=== PATIENT | female | born 1945 | race Caucasian/White ===

== ENCOUNTER → 2016-10-08 | Outpatient (CLI) | payer MEDICARE, OTHER ==
[~2016-10-08] MED LIST: ALPRAZOLAM0.5 MG PO; ASPIRIN EC325 MG PO; DOXYCYCLINE HY100 M3 PO; ESCITALOPRAM 2020 MG PO; INVOKANA100 MG PO; JANUMET XR1 TER PO; LASIX20 MG PO; LEVOTHYROXINE0.05 MG NG; LIPITOR80 MG PO; LISINOPRIL 20MG20 MG PO; METFORMIN1000 MG PO; NIASPAN500 MG PO; NORCO 325 MG-51 TAB PO; OMEPRAZOLE40 MG PO; PREDNISONE 20MG20 MG PO; PROMETHAZI PO; VITAMIN C500 M1 PO; VITAMIN D31000 IU PO
--- NOTE | 2016-10-09 07:15 | RADIOLOGY REPORT PS360 ---
MRI-L-SPINE W/O, MRI-3D RENDERING/MYELOGRAM Ordering Physician: Maximo Whitaker Age: 70 years: Female HISTORY: SCIATICA, UNSPECIFIED LATERALLY Low back pain left leg pain 1 month TECHNIQUE: Sagittal STIR, T1, T2, axial T1 and T2. On 1.5T Siemens wide bore MRI. 3-D MR myelogram image set obtained & performed on MRI workstation. Additional sagittal thin section T2 weighted dataset obtained from this latter acquisition as well (---76 CPT) FINDINGS No previous studies available for comparison Lumbar vertebral bodies overall intact with no compression fractures or significant lesions. L5/S1. Mild diffuse disc bulge most evident towards left foramen. Bilateral facet hypertrophy arthropathy. The moderate foraminal encroachment left> right L4/5: Exuberant facet arthropathy, posterior element hypertrophy give rise to the ~5 mm degenerative anterolisthesis of L4 on L5. Prominent disc bulge associated. These features severe spinal stenosis .. Trefoil configurationspinal canal due to the facet hypertrophy. Prominent recess and foraminal encroachment, bilateral. Levoscoliosis lower L-spine from L2-L4. At the Disc space narrowing to the right at L2/ 3 &/L3/4 levels contributes to the levoscoliosis:. L. 3/4. Degenerative Disc narrowing most evident rightward. Diffuse disc bulge eccentric to the right most evident towards the right foramen more so than left. Facet hypertrophy right greater than left indents posterior aspect of the thecal sac.. These features do yield moderate central canal stenosis; with moderate encroachment upon the right foramen greater than left L2/3. Degenerative disc space narrowing most evident to the right . Mild eccentric disc bulge most evident towards left foramen. Generous facet arthropathy and hypertrophy bilaterally most evident to the right where it indents the posterior right aspect of thecal sac. Moderate spinal stenosis L1/2. Disc intact. T12/L1 disc intact. T11/12 disc intact with mild facet arthropathy. Most likely cyst at the lower pole right kidney 23 mm height. 15 mm wide 3-D MR myelogram nicely demonstrates the Severe Spinal Stenosis at L4/5;. Moderate spinal stenosis at L2/3 at L3/4 each with prominent indentation upon the right aspect of thecal sac due to the prominent facet hypertrophy and disc bulge right note: This study was dictated with a voice-recognition system. There may be typographical error is related to such. If they are significant please notify us for corrections IMPRESSION 1. . Multilevel central canal stenosis and foraminal encroachment. , Degenerative disc,Lumbar spondylosis, facet hypertrophy, levoscoliosis features also contribute to yield such.: L4/5. Severe central canal stenosis. Exuberant facet hypertrophy yields Grade 1 degenerative listhesis. This along with prominent disc bulge Severe Central Canal Stenosis at L4/5. Prominent bilateral foraminal encroachment L4 to/3 L3/4 with moderate central canal stenosis. More Prominent facet hypertrophy to the right in part due to the due to the levoscoliosis indents the posterior thecal sac at each of these levels along with disc bulge. Moderate Bilateral foraminal encroachment at each level as well, more evident to the left at L2/3.
== END ==
LOC: RAD 08:45
DX: M54.30 Sciatica, unspecified side (principal)